=== PATIENT | female | born 2000 | race African-American/Black ===

== ENCOUNTER 2021-04-08 23:20 | Emergency (ER) | payer OTHER ==
[2021-04-08 23:32] VITALS: TEMP 98.5; BMI 24.0
[2021-04-08 23:48] LABS: BASO % 0.4 % (0-2.0); EOS % 3.2 % (0-4.5); HEMATOCRIT 34.1 % (32.4-45.2); HEMOGLOBIN 11.6 GM/dL (10.7-15.3); LYMPH % 40.4 % (8-40); MCH 29.5 pg (25.7-33.7); MCHC 34.2 g/dl (32.0-36.0); MEAN CELL VOLUME 86.5 fl (80-96); MEAN PLT VOLUME 7.6 fl (7.5-11.1); MONO % 9.2 % (3.8-10.2); NEUT % 46.8 % (42.8-82.8); PLATELET COUNT 244 10^3/uL (134-434); RBC 3.94 M/mm3 (3.60-5.2); RDW 14.2 % (11.6-15.6); WHITE BLOOD COUNT 6.5 K/mm3 (4.0-10.0)
[2021-04-09 00:17] LABS: CHLORIDE 109 mmol/L (98-107); SODIUM 143 mmol/L (136-145)
[2021-04-09 00:19] LABS: ALBUMIN 3.3 g/dl (3.4-5.0); ANION GAP 8 MMOL/L (8-16); BLOOD UREA NITROGEN 8.5 mg/dL (7-18); CALCIUM 8.3 mg/dL (8.5-10.1); CO2 25 mmol/L (21-32)
[2021-04-09 00:20] LABS: GLUCOSE,RANDOM 125 mg/dL (74-106)
[2021-04-09 00:23] LABS: SGOT/AST 13 U/L (15-37); SGPT/ALT 18 U/L (13-61)
[2021-04-09 00:24] LABS: BILIRUBIN,TOTAL 0.2 mg/dL (0.2-1); TOT PROT 6.8 g/dl (6.4-8.2)
[2021-04-09 00:25] LABS: ALK PHOS 65 U/L (45-117)
[2021-04-09 01:06] VITALS: BP 132/78; PULSE 98
== END 2021-04-09 01:03 | disposition home or self-care (01) ==
LOC: JER 23:20
DX: I47.1 Supraventricular tachycardia (principal)
CPT/HCPCS: 36415; 80053; 80307; 84443; 84484; 84703; 85025; 93005; 93010; 99284-25